=== PATIENT | male | born 1965 | race African-American/Black ===

== ENCOUNTER 2024-05-24 08:24 | Emergency (ER) | payer MEDICAID, OTHER ==
[~2024-05-24] VITALS: Ht 180.3 cm; Wt 94.9 kg
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
[2024-05-24] MEDS: ACETAMINOPHEN 325 MG TAB PO ONE (09:39)
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
[2024-05-24 11:42] VITALS: BP 138/78; PULSE 78; RESP 17; TEMP 98.7; O2SAT 97
== END 2024-05-24 11:46 | disposition home or self-care (01) ==
LOC: ER 08:24
DX: S06.0X0A Concussion without loss of consciousness, initial encounter (principal); S16.1XXA Strain of muscle, fascia and tendon at neck level, initial encounter; R41.0 Disorientation, unspecified; M25.512 Pain in left shoulder; M25.552 Pain in left hip; V43.52XA Car driver injured in collision with other type car in traffic accident, initial encounter; Y93.89 Activity, other specified; Y92.410 Unspecified street and highway as the place of occurrence of the external cause; Y99.8 Other external cause status
CPT/HCPCS: 70450; 73030; 73501

== ENCOUNTER 2025-04-07 10:30 | Emergency (ER) | payer OTHER ==
[~2025-04-07] VITALS: Ht 180.3 cm; Wt 96.8 kg
[2025-04-07 11:04] VITALS: BP 124/83; PULSE 73; RESP 18; TEMP 98; O2SAT 97
[2025-04-07] MEDS ORDERED: TERB1CRE10 EX (11:51)
--- NOTE | 2025-04-07 11:51 | ED.PDOC ---
History of Present Illness HPI Comments A 59 YEAR OLD MALE PRESENTS TO THE ED WITH COMPLAINT OF NAIL FUNGUS ON RIGHT THUMB. PATIENT PRESENTS WITH 4/10 PAIN AND VISIBLE FUNGAL GROWTH ON THE RIGHT THUMB. PATIENT DENIES FEVER, CHILLS, SHORTNESS OF BREATH, CHEST PAIN, ABDOMINAL PAIN, NAUSEA, VOMITING, HEADACHE, OR OTHER COMPLAINTS. NO OTHER SYMPTOMS OR MODIFYING FACTORS AT THIS TIME. PATIENT IS ALERT, ORIENTED X 4, AND HAS STEADY GAIT. Chief Complaint: FUNGAL NAIL Time Seen by MD: 11:51 Primary Care Provider: DENIES Allergies: Coded Allergies: NO KNOWN ALLERGIES (Unverified , 05/24/24) Home Meds Active Scripts Terbinafine Hcl (Topical) (Lamisil At [facility]) 1 % Cre, 1 % EX BID, #30 CRE Prov:ASYA NICE 04/07/25 Mode of Arrival: Ambulatory Past Medical History PAST MEDICAL HISTORY: Denies Surgical History: Denies all surgeries Family History Family History: Unknown Social History Smoker: Non-Smoker Alcohol: Denies ETOH Use Drugs: Denies Drug Use Lives In: Home X-Ray, Labs, Meds, VS Vital Signs Date Time Temp Pulse Resp B/P (MAP) Pulse Ox O2 Delivery O2 Flow Rate FiO2 04/07/25 11:04 98.0 73 18 124/83 (97) 97 98.0 04/07/25 10:35 98.0 73 18 124/83 97 98.0 SEPSIS Sepsis Screen Date sepsis recognized/suspect: Apr 07, 2025 Time Sepsis recognized/suspect: 1035 Recent Procedure: No On Antibiotic Therapy: No Respiratory Rate >20: No Heart Rate >90: No Temp<36 C (96.8 F) or >38.3 C: No SBP <90 or MAP <65 mmHG: No New Acute Mental Status Change: No Is the patient on CPAP, BIPAP,: No Vital Signs Date Time Temp Pulse Resp B/P (MAP) Pulse Ox O2 Delivery O2 Flow Rate FiO2 04/07/25 11:04 98.0 73 18 124/83 (97) 97 98.0 04/07/25 10:35 98.0 73 18 124/83 97 98.0 Departure 1 Departure e-Prescriptions Terbinafine Hcl (Topical) (Lamisil At [facility]) 1 % Cre 1 % EX BID, #30 CRE Prov: ASYA NICE 04/07/25 I personally scribed for ASYA NICE ([email or web address]) on 04/07/25 at 11:51. Electronically submitted by Gela Sanders ([email or web address]). I personally scribed for ASYA NICE ([email or web address]) on 04/07/25 at 11:55. Electronically submitted by Raul Lewis ([email or web address]). ASYA NICE Apr 07, 2025 11:51
--- NOTE | 2025-04-07 11:54 | ED.PDOC ---
History of Present Illness HPI Comments A 59 YEAR OLD MALE PRESENTS TO THE ED WITH COMPLAINT OF FUNGAL NAILS OF RIGHT HAND. PATIENT STATES HE HAS HAD FUNGAL NAILS ON THE FINGERS OF HIS RIGHT HAND FOR THE PAST 6 MONTHS. PATIENT DENIES FEVER, CHILLS, SHORTNESS OF BREATH, CHEST PAIN, ABDOMINAL PAIN, NAUSEA, VOMITING, HEADACHE, OR OTHER COMPLAINTS. NO OTHER SYMPTOMS OR MODIFYING FACTORS AT THIS TIME. PATIENT IS ALERT, ORIENTED X 4, AND HAS STEADY GAIT. Chief Complaint: Upper Extremity Time Seen by MD: 10:40 Primary Care Provider: DENIES Reviewed Notes: Nurses Notes, Medications, Allergies Allergies: Coded Allergies: NO KNOWN ALLERGIES (Unverified , 05/24/24) Home Meds Active Scripts Terbinafine Hcl (Topical) (Lamisil At [employer]) 1 % Cre, 1 % EX BID, #30 CRE Prov:ASYA NICE 04/07/25 Information Source: Patient Mode of Arrival: Ambulatory Severity: Mild Timing: Days Duration: Since onset, Days Prehospital treatment: None Medication Refill: For: Other (FUNGAL NAILS OF RIGHT HAND) Past Medical History PAST MEDICAL HISTORY: Denies Surgical History: Denies all surgeries Family History Family History: Reviewed,noncontributory to illness Social History Smoker: Non-Smoker Alcohol: Denies ETOH Use Drugs: Denies Drug Use Lives In: Home Constitutional: denies: chills, diaphoresis, fatigue, fever, malaise, sweats, weakness, others EENTM: denies: blurred vision, double vision, ear bleeding, ear discharge, ear drainage, ear pain, ear ringing, eye pain, eye redness, hearing loss, mouth pain, mouth swelling, nasal discharge, nose bleeding, nose congestion, nose pain, photophobia, tearing, throat pain, throat swelling, voice changes, others Respiratory: denies: cough, hemoptysis, orthopnea, SOB at rest, shortness of breath, SOB with excertion, stridor, wheezing, others Cardiovascular: denies: chest pain, dizzy spells, diaphoresis, Dyspnea on exertion, edema, irregular heart beat, left arm pain, lightheadedness, palpitations, PND, syncope, others Gastrointestinal: denies: abdomen distended, abdominal pain, blood streaked bowels, constipated, diarrhea, dysphagia, difficulty swallowing, hematemesis, melena, nausea, poor appetite, poor fluid intake, rectal bleeding, rectal pain, vomiting, others Genitourinary: denies: burning, dysuria, flank pain, frequency, hematuria, incontinence, penile discharge, penile sore, pain, testicle pain, testicle swelling, urgency, others Neurological: denies: dizziness, fainting, headache, left sided numbness, left sided weakness, numbness, paresthesia, pre-existing deficit, right sided numbness, right sided weakness, seizure, speech problems, tingling, tremors, weakness, others Musculoskeletal: denies: back pain, gout, joint pain, joint swelling, muscle pain, muscle stiffness, neck pain, others Integumetry: reports: rash; denies: bruises, change in color, change in hair/nails, dryness, laceration, lesions, lumps, wounds, others Allergic/Immunocompromised: denies: Difficulty Healing, Frequent Infections, Hives, Itching, others Hematologic/Lymphatic: denies: anemia, blood clots, easy bleeding, easy bruising, swollen glands, others Endocrine: denies: excessive hunger, excessive sweating, excessive thirst, excessive urination, flushing, intolerance to cold, intolerance to heat, unexplained weight gain, unexplained weight loss, others Psychiatric: denies: anxiety, bipolar disorder, depression, hopeless, panic disorder, schizophrenia, sleepless, suicidal, others All Other Systems: Reviewed and Negative Physical Exam General Appearance: No Apparent Distress, Normal HEENT: Normal ENT Inspection, PERRL/EOMI, Pharynx Normal, TMs Normal Neck: Full Range of Motion, Non-Tender, Normal, Normal Inspection Respiratory: Chest Non-Tender, Lungs Clear, No Accessory Muscle Use, No Respiratory Distress, Normal Breath Sounds Cardiovascular: No Edema, No JVD, No Murmur, No Gallop, Normal Peripheral Pulses, Regular Rate/Rhythm Breast Exam: Deferred Gastrointestinal: No Organomegaly, Non Tender, No Pulsatile Mass, Normal Bowel Sounds, Soft Genitalia: Deferred Pelvic: Deferred Rectal: Deferred Extremities: No calf tenderness, Normal capillary refill, Normal inspection, Normal range of motion, Non-tender, No pedal edema Musculoskeletal : Apperance: Normal Neurologic: Alert, clinical staff rn II-XII nml as Tested, No Motor Deficits, Normal Affect, Normal Mood, No Sensory Deficits Cerebellar Function: Normal Reflexes: Normal Skin: Dry, Normal Color, Rash (MYCOTIC/FUNGAL NAILS NOTED TO RIGHT THUMB AND INDEX FINGERS. NO REDNESS OR SWELLING NOTED.), Warm Peripheral Pulses: 2+ carotid (R), 2+ carotid (L), 2+ dorsalis pedis (R), 2+ dorsalis pedis (L) Lymphatic: No Adenopathy Was a procedure done? Was a procedure done?: No Differential Dx Considerations may include: ONYCHOMYCOSIS, INGROWN NAIL, PARONYCHIA X-Ray, Labs, Meds, VS Vital Signs Date Time Temp Pulse Resp B/P (MAP) Pulse Ox O2 Delivery O2 Flow Rate FiO2 04/07/25 11:04 98.0 73 18 124/83 (97) 97 98.0 04/07/25 10:35 98.0 73 18 124/83 97 98.0 X-Ray, Labs, Meds, VS Comment EXTERNAL MEDICAL RECORDS REVIEWED: [NONE] INDEPENDENT HISTORIANS: [NONE] SOCIAL DETERMINANTS OF HEALTH: [NONE] LABS ORDERED: NONE REVIEWED AND INTERPRETED RESULTS: NONE IMAGING ORDERED: NONE TREATMENTS ORDERED: NONE PROCEDURES PERFORMED: NONE CRITICAL CARE TIME: NONE I HAVE DISCUSSED THE PATIENT WITH THE ATTENDING PHYSICIAN DR. MACKEY AND HE AGREES WITH THE PATIENT'S PLAN OF CARE AND DISPOSITION. BASED ON HISTORY OF PRESENT ILLNESS, AND PHYSICAL EXAM, PATIENT WILL BE DISCHARGED HOME. DISCUSSED PLAN FOR DISCHARGE HOME WITH RX [LAMISIL CREAM]. MEDICATION WARNINGS GIVEN. SHARED DECISION MAKING: DISCUSSED WITH PATIENT THAT THEIR WORKUP WAS NORMAL. PATIENT INSTRUCTED TO FOLLOW UP WITH PRIMARY CARE PROVIDER IN 1-2 DAYS FOR RE- EVALUATION OF SYMPTOMS. PATIENT VERBALIZES UNDERSTANDING TO RETURN TO ED FOR NEW OR WORSENING SYMPTOMS OR IF FOLLOW UP WITH PCP CANNOT BE OBTAINED. PATIENT FEELS COMFORTABLE GOING HOME AT THIS TIME. ALL QUESTIONS ADDRESSED AT TIME OF DISCHARGE. Time of 1ST Reevaluation: 12:20 Reevaluation 1ST: Improved Patient Education/Counseling: Diagnosis, Treatment, Need For Follow Up Family Education/Counseling: Diagnosis, Treatment, Need For Follow Up Medical Screening: No EMC Exist At This Time SEPSIS Sepsis Screen Date sepsis recognized/suspect: Apr 07, 2025 Time Sepsis recognized/suspect: 1035 Recent Procedure: No On Antibiotic Therapy: No Respiratory Rate >20: No Heart Rate >90: No Temp<36 C (96.8 F) or >38.3 C: No SBP <90 or MAP <65 mmHG: No New Acute Mental Status Change: No Is the patient on CPAP, BIPAP,: No Vital Signs Date Time Temp Pulse Resp B/P (MAP) Pulse Ox O2 Delivery O2 Flow Rate FiO2 04/07/25 11:04 98.0 73 18 124/83 (97) 97 98.0 04/07/25 10:35 98.0 73 18 124/83 97 98.0 Departure 1 Departure Time of Disposition: 12:20 Impression: Primary Impression: Onychomycosis Disposition: HOME / SELF CARE / HOMELESS Condition: Stable Additional Instructions: FOLLOW UP WITH PCP IN 1-2 DAYS. TAKE MEDICATIONS PRESCRIBED. RETURN TO ED FOR ANY NEW OR WORSENING SYMPTOMS. e-Prescriptions Terbinafine Hcl (Topical) (Lamisil At [facility]) 1 % Cre 1 % EX BID, #30 CRE Prov: ASYA NICE 04/07/25 Discharged With: Self Critical Care Note Critical Care Time?: No Stability Stability form required: No I personally scribed for ASYA NICE ([email or web address]) on 04/07/25 at 11:54. Electronically submitted by Raul Lewis ([email or web address]). ASYA NICE Apr 07, 2025 11:54
== END 2025-04-07 11:56 | disposition home or self-care (01) ==
LOC: ER 10:30
DX: B35.1 Tinea unguium (principal); Z79.899 Other long term (current) drug therapy